=== PATIENT | female | born 1990 | race Caucasian/White ===

== ENCOUNTER 2020-06-11 09:53 | Emergency (ER) | payer BC ==
[~2020-06-11] VITALS: Ht 175.3 cm; Wt 64.4 kg
[~2020-06-11 09:53] MED LIST: NOR10T PO; XANAX2 MG PO
[2020-06-11 10:00] VITALS: Ht 175.3 cm; Wt 64.4 kg
[2020-06-11] MEDS ORDERED: BACDS PO (10:26)
[2020-06-11] MEDS ORDERED: BACO TOP (10:26)
[2020-06-11 10:44] VITALS: BP 125/77
== END 2020-06-11 10:44 | disposition home or self-care (01) ==
LOC: ED 09:53
DX: L03.211 Cellulitis of face (principal); G89.29 Other chronic pain; M54.9 Dorsalgia, unspecified; Z88.6 Allergy status to analgesic agent